=== PATIENT | male | born 1965 | race Caucasian/White ===

== ENCOUNTER 2017-10-12 15:06 | Emergency (ER) | payer MEDICAID ==
[2017-10-12] MEDS: BISACODYL 10 MG SUPP PR (16:13)
[2017-10-12] MEDS: ONDANSETRON 4 MG INJ IV (16:13)
[2017-10-12] MEDS: KETOROLAC 30 MG INJ IV (16:13)
[2017-10-12 16:25] LABS: ADD MAN DIFF? NO
[2017-10-12 16:31] LABS: WHITE BLOOD COUNT 14.8 10^3/ul (4.8-10.8)
[2017-10-12 16:31] LABS: BASOPHILS % 0.2 % (0.0-2.0); EOSINOPHILS % 0.2 % (0.0-7.0); HEMATOCRIT 40.7 % (42.0-52.0); HEMOGLOBIN 13.8 g/dl (14.0-18.0); LYMPHOCYTES # 1.3 10^3/ul (0.8-2.9); LYMPHOCYTES % 8.9 % (15.0-51.0); MEAN CORPUSCULAR HEMOGLOBIN 30.5 pg (29.0-33.0); MEAN CORPUSCULAR HGB CONC 33.9 g/dl (32.0-37.0); MEAN CORPUSCULAR VOLUME 89.8 fl (82.0-101.0); MEAN PLATELET VOLUME 9.3 fl (7.4-10.4); MONOCYTES % 6.5 % (0.0-11.0); NEUTROPHIL # 12.4 10^3/ul (1.6-7.5); NEUTROPHILS % 83.7 % (39.0-77.0); PLATELET COUNT 292 10^3/UL (140-415); RED BLOOD COUNT 4.53 10^6/ul (4.70-6.10); RED CELL DISTRIBUTION WIDTH 12.2 % (11.5-14.5)
[2017-10-12 16:48] LABS: ALANINE AMINOTRANSFERASE 26 IU/L (13-69); ALBUMIN 4.5 g/dl (3.3-4.9); ALKALINE PHOSPHATASE 116 IU/L (42-121); ANION GAP 14 (8-16); ASPARTATE AMINO TRANSFERASE 19 IU/L (15-46); BILIRUBIN,INDIRECT 0.3 mg/dl (0-1.1); BILIRUBIN,TOTAL 0.3 mg/dl (0.2-1.3); BLOOD UREA NITROGEN 18 mg/dl (7-20); CALCIUM 9.1 mg/dl (8.4-10.2); CARBON DIOXIDE 23 mmol/L (21-31); CHLORIDE 106 mmol/L (97-110); CREATININE 1.28 mg/dl (0.61-1.24); GLUCOSE 113 mg/dl (70-220); LIPASE 32 U/L (23-300); POTASSIUM 4.1 mmol/L (3.5-5.1); SODIUM 139 mmol/L (135-144); TOTAL PROTEIN 7.7 g/dl (6.1-8.1)
[2017-10-12] MEDS: IODIXANOL LOCM 100 ML BTL (17:22)
[2017-10-12] MEDS: SOD CHLORIDE 0.9% 100 ML (17:22)
[2017-10-12] MEDS: SOD CHLORIDE 0.9% 1,000 ML IV (17:43)
[2017-10-12 18:55] LABS: URINE BLOOD (Dip) POC Trace-lysed (NEGATIVE); URINE GLUCOSE (Dip) POC Negative (NEGATIVE); URINE KETONES (Dip) POC Negative (NEGATIVE); URINE LEUKOCYTE EST (Dip) POC Negative (NEGATIVE); URINE NITRITE (Dip) POC Negative (NEGATIVE); URINE TOTAL PROTEIN POC Negative (NEGATIVE)
== END 2017-10-12 20:37 | disposition home or self-care (01) ==
LOC: FTE 15:06
DX: R10.84 Generalized abdominal pain (principal); R11.0 Nausea
CPT/HCPCS: 36415; 74176; 80053; 81003; 83690; 85025; 96374; 96375; 99285-25

== ENCOUNTER 2018-01-28 00:55 | Emergency (ER) | payer MEDICAID | END 2018-01-28 05:06 | disposition home or self-care (01) | LOC: FTE 05:06 | DX: R51 Headache (principal) | CPT/HCPCS: 99282; Z7502 ==

== ENCOUNTER 2018-07-06 21:54 | Emergency (ER) | payer MEDICAID ==
[2018-07-06 22:31] LABS: ADD MAN DIFF? NO
[2018-07-06 22:33] LABS: BASOPHILS % 0.2 % (0.0-2.0); EOSINOPHILS # 0.1 10^3/ul (0.0-0.5); EOSINOPHILS % 0.7 % (0.0-7.0); HEMATOCRIT 41.6 % (42.0-52.0); LYMPHOCYTES # 2.1 10^3/ul (0.8-2.9); LYMPHOCYTES % 26.3 % (15.0-51.0); MEAN CORPUSCULAR HGB CONC 33.7 g/dl (32.0-37.0); MEAN CORPUSCULAR VOLUME 89.1 fl (82.0-101.0); MEAN PLATELET VOLUME 9.1 fl (7.4-10.4); MONOCYTE # 0.7 10^3/ul (0.3-0.9); MONOCYTES % 8.7 % (0.0-11.0); NEUTROPHIL # 5.1 10^3/ul (1.6-7.5); NEUTROPHILS % 63.5 % (39.0-77.0); PLATELET COUNT 301 10^3/UL (140-415); RED BLOOD COUNT 4.67 10^6/ul (4.70-6.10); RED CELL DISTRIBUTION WIDTH 12.1 % (11.5-14.5)
[2018-07-06] MEDS: LORAZEPAM 1 MG TAB PO (22:44)
[2018-07-06 22:47] LABS: ANION GAP 9 (5-13); BLOOD UREA NITROGEN 16 mg/dl (7-20); CALCIUM 9.4 mg/dl (8.4-10.2); CARBON DIOXIDE 24 mmol/L (21-31); CHLORIDE 106 mmol/L (97-110); CREATININE 0.94 mg/dl (0.61-1.24); Estimated GFR > 60 mL/min (>60); GLUCOSE 101 mg/dl (70-220); POTASSIUM 4.2 mmol/L (3.5-5.1); SODIUM 139 mmol/L (135-144)
[2018-07-06 22:57] LABS: TROPONIN-I < 0.012 ng/ml (0.000-0.120)
== END 2018-07-06 23:52 | disposition home or self-care (01) ==
LOC: E/R 21:54
DX: R07.89 Other chest pain (principal)
CPT/HCPCS: 36415; 71045; 80048; 84484; 85025; 99285-25

== ENCOUNTER 2018-08-18 19:09 | Emergency (ER) | payer MEDICAID | END 2018-08-18 21:24 | disposition home or self-care (01) | LOC: FTE 19:09 | DX: R21 Rash and other nonspecific skin eruption (principal) | CPT/HCPCS: 99283; Z7502 ==

== ENCOUNTER 2018-10-02 21:15 | Emergency (ER) | payer MEDICAID | END 2018-10-02 21:40 | disposition home or self-care (01) | LOC: FTE 21:40 | DX: B35.1 Tinea unguium (principal) | CPT/HCPCS: 99282; Z7502 ==

== ENCOUNTER 2018-10-09 02:15 | Emergency (ER) | payer MEDICAID | END 2018-10-09 04:20 | disposition home or self-care (01) | LOC: FTE 02:15 | DX: T63.481A Toxic effect of venom of other arthropod, accidental (unintentional), initial encounter (principal) | CPT/HCPCS: 99283; Z7502 ==